=== PATIENT | female | born 1995 | race Caucasian/White ===

== ENCOUNTER 2017-07-29 12:50 | Emergency (ER) | payer MEDICAID ==
[2017-07-29 13:08] VITALS: BP 99/62; PULSE 82; RESP 20; TEMP 98.5; O2SAT 97
[2017-07-29 14:19] LABS: RBC URINE 1 /hpf (0-3); URINE BACTERIA RARE (<OCC); URINE BILIRUBIN NEGATIVE (NEGATIVE); URINE BLOOD NEGATIVE (NEGATIVE); URINE COLOR Amber (YELLOW); URINE GLUCOSE (UA) NORMAL (Normal); URINE KETONE NEGATIVE (NEGATIVE); URINE LEUKOCYTE ESTERASE NEG Leu/uL (Negative); URINE PROTEIN NEGATIVE (NEGATIVE); WBC URINE < 1 /hpf (0-5)
[2017-07-29] MEDS ORDERED: Dexamethasone 4 mg/1 ml IM STA (14:31)
[2017-07-29] MEDS ORDERED: Dexamethasone 4 mg/1 ml ONE (14:40)
--- NOTE | 2017-07-29 14:50 | C.PDOC ---
Time Seen by Provider: 07/29/17 13:33 Chief Complaint (Nursing): Allergic Reaction History Per: Patient Onset/Duration Of Symptoms: Days (1) Current Symptoms Are (Timing): Still Present Possible Cause: Medication (Bactrim, Ranitidine and Pyridium. All started yesterday.) Associated Symptoms: Skin Rash, Itching, Redness Home/EMS Treatment: None Severity: Moderate Additional History Per: Prior Records Past Medical History Reviewed: Historical Data, Nursing Documentation, Vital Signs Vital Signs: Last Vital Signs Temp 98.5 F 07/29/17 13:08 Pulse 82 07/29/17 13:08 Resp 20 07/29/17 13:08 BP 99/62 L 07/29/17 13:08 Pulse Ox 97 07/29/17 13:08 - Medical History PMH: Gastritis (?) Surgical History: No Surg Hx Family History: States: Unknown Family Hx - Social History Hx Tobacco Use: No Hx Alcohol Use: No Hx Substance Use: No - Immunization History Hx Tetanus Toxoid Vaccination: Yes Hx Influenza Vaccination: Yes Hx Pneumococcal Vaccination: Yes Review Of Systems Except As Marked, All Systems Reviewed And Found Negative. Constitutional: Negative for: Fever, Chills, Weakness ENT: Negative for: Throat Pain Cardiovascular: Negative for: Chest Pain Respiratory: Negative for: Cough, Shortness of Breath Gastrointestinal: Negative for: Vomiting, Abdominal Pain Genitourinary: Positive for: Dysuria Musculoskeletal: Negative for: Neck Pain, Back Pain Skin: Positive for: Rash Neurological: Negative for: Weakness, Numbness, Change in Speech, Seizures, Altered Mental Status Physical Exam - Physical Exam Appears: Non-toxic, No Acute Distress Skin: Warm, Dry, Rash (erythematous, on face and trunk) Head: Atraumatic, Normacephalic Eye(s): bilateral: Normal Inspection, PERRL, EOMI Oral Mucosa: Moist, No Drooling, No Trismus Tongue: Normal Appearing Lips: Normal Appearing Throat: Normal Neck: Normal ROM, Supple Lymphatic: No Adenopathy Cardiovascular: Rhythm Regular Respiratory: Normal Breath Sounds, No Accessory Muscle Use Gastrointestinal/Abdominal: Soft, No Tenderness Back: No CVA Tenderness Extremity: Normal ROM, No Pedal Edema Neurological/Psych: Oriented x3, Normal Speech, Normal Motor, Normal Sensation ED Course And Treatment - Laboratory Results Interpretation Of Abnormal: Nitrate positive urine Urine POC: Negative O2 Sat by Pulse Oximetry: 97 Pulse Ox Interpretation: Normal Reassessment Condition: Improved Progress - Interventions Interventions:: Observation - Medications Administered Oral: Antihistamine(H-1) - Data Reviewed Data Reviewed: Lab, Old records - Continuity of Care Discussed patient case with:: Patient - Patient Plan Patient Plan: Discharge, F/U with PCP Medical Decision Making Medical Decision Making: Will change Bactrim to Cipro and d/c Ranitidine and Pyridium. Disposition Counseled Patient/Family Regarding: Studies Performed, Diagnosis, Need For Followup, Rx Given - Disposition Disposition: HOME/ ROUTINE Disposition Time: 14:52 Condition: STABLE Additional Instructions: Stop taking the Bactrim and start the new antibiotic instead. Stop all other medications and take Benadryl as needed for itching. Follow up with your doctor. Return to the ER if you develop throat swelling, trouble breathing or swallowing, fever, worsening of symptoms or if you have any other concerns. Prescriptions: Ciprofloxacin [Cipro] 1 tab PO BID #6 tab DiphenhydrAMINE [Benadryl] 25 mg PO Q4 PRN #30 cap PRN Reason: Allergy Symptoms Instructions: Antibiotic Medication Allergy (ED) - Clinical Impression Clinical Impression: Allergic reaction to drug
== END 2017-07-29 15:14 | disposition home or self-care (01) ==
LOC: C.ER 12:50
DX: L27.0 Generalized skin eruption due to drugs and medicaments taken internally (principal); T37.0X5A Adverse effect of sulfonamides, initial encounter
CPT/HCPCS: 81001; 84703; 87086; 96372; 99284; J1100